=== PATIENT | female | born 1985 | race Caucasian/White ===

== ENCOUNTER 2019-02-24 13:14 | Emergency (ER) | payer MEDICAID ==
[~2019-02-24] VITALS: Ht 172.7 cm; Wt 86.4 kg
[2019-02-24 15:28] VITALS: BP 121/70
== END 2019-02-24 15:47 | disposition home or self-care (01) ==
LOC: ER 13:15
DX: S30.0XXA Contusion of lower back and pelvis, initial encounter (principal); W18.39XA Other fall on same level, initial encounter; Y93.89 Activity, other specified; Y92.89 Other specified places as the place of occurrence of the external cause; Y99.8 Other external cause status
CPT/HCPCS: 99281; 99283

== ENCOUNTER 2019-04-18 14:58 | Emergency (ER) | payer MEDICAID ==
[~2019-04-18] VITALS: Ht 172.7 cm; Wt 78.0 kg
[2019-04-18 15:00] VITALS: BP 123/62
== END 2019-04-18 15:17 | disposition home or self-care (01) ==
LOC: ER 14:58
DX: S30.0XXD Contusion of lower back and pelvis, subsequent encounter (principal); E07.9 Disorder of thyroid, unspecified; Z98.890 Other specified postprocedural states; V80.010D Animal-rider injured by fall from or being thrown from horse in noncollision accident, subsequent encounter
CPT/HCPCS: 99281

== ENCOUNTER 2022-07-01 22:22 | Emergency (ER) | payer MEDICAID ==
[~2022-07-01] VITALS: Ht 167.6 cm; Wt 90.9 kg
[2022-07-01 22:46] LABS: BASOPHILS # (AUTO) 0.1 X10'3 (0-0.2); BASOPHILS % (AUTO) 0.7 % (0-1); EOSINOPHILS # (AUTO) 0.1 X10'3 (0-0.9); EOSINOPHILS % (AUTO) 1.2 % (0-6); HEMATOCRIT 41.6 % (35.0-45.0); HEMOGLOBIN 13.8 g/dl (12.0-16.0); LYMPHOCYTES # (AUTO) 3.7 X10'3 (1.1-4.8); LYMPHOCYTES % (AUTO) 39.3 % (21-51); MEAN CORPUSCULAR HGB CONC 33.2 g/dL (33.0-36.5); MEAN CORPUSCULAR VOLUME 87.3 FL (78-98); MEAN PLATELET VOLUME 7.4 FL (7.4-10.4); MONOCYTES # (AUTO) 0.5 X10'3 (0-0.9); MONOCYTES % (AUTO) 5.6 % (2-12); NEUTROPHILS # (AUTO) 5.1 X10'3 (1.8-7.7); NEUTROPHILS % (AUTO) 53.2 % (42-75); PLATELET COUNT 287 X10'3 (140-440); RED BLOOD COUNT 4.77 X10'6 (4.20-5.60); RED CELL DISTRIBUTION WIDTH 12.8 % (11.5-14.5); WHITE BLOOD COUNT 9.5 X10'3 (4.5-11.0)
[2022-07-01 22:56] LABS: ALANINE AMINOTRANSFERASE 30 U/L (12-78); ALBUMIN 3.7 G/DL (3.4-5.0); ALBUMIN/GLOBULIN RATIO 0.9 (1.1-1.5); ALKALINE PHOSPHATASE 83 IU/L (46-116); ANION GAP 9 (8-16); ASPARTATE AMINO TRANSFERASE 17 U/L (10-37); BILIRUBIN,TOTAL 0.2 MG/DL (0.1-1.0); BLOOD UREA NITROGEN 10 MG/DL (7-18); BUN/CREATININE RATIO 12.3 (6.6-38.0); CALCIUM 8.8 MG/DL (8.5-10.1); CHLORIDE 100 MMOL/L (99-107); CREATININE 0.81 MG/DL (0.40-0.90); GLUCOSE 312 MG/DL (70-104); POTASSIUM 3.6 MMOL/L (3.5-5.1); SODIUM 136 MMOL/L (135-145); TOTAL CARBON DIOXIDE 27.4 MMOL/L (24-32); TOTAL PROTEIN 7.6 G/DL (6.4-8.2); eGFR 79 ML/MIN
--- NOTE | 2022-07-02 01:30 | NUR ---
pt DC'd IN STABLE CONDITION , DENIES CHEST PAIN, NO IV ACCESS, LAB RESULTS NIL, TROP NEG , PATIENT AMBULATORY
[2022-07-02 01:48] VITALS: BP 125/70
== END 2022-07-02 01:00 | disposition home or self-care (01) ==
LOC: ER 22:23
DX: R07.9 Chest pain, unspecified (principal); M54.9 Dorsalgia, unspecified; E07.9 Disorder of thyroid, unspecified
CPT/HCPCS: 36415; 71045; 80053; 83880; 84484; 85025; 93005; 99285